=== PATIENT | female | born 1935 | race Caucasian/White ===

== ENCOUNTER 2017-01-31 08:55 | Emergency (ER) | payer BC ==
[~2017-01-31] VITALS: Ht 157.5 cm; Wt 97.3 kg
[~2017-01-31 08:55] MED LIST: ADVIL200 MG PO; ASPIRIN E.C. 8181 MG PO; CELEXA 20MG20 MG/TAB PO; CIPRO 250MG TA250 MG PO; CLEOCIN HC150 MG/CAP PO; CUBICIN 500MG500 MG IV; DIFLUCAN150 MG PO; K-DUR 2020 MEQ PO; NITROQUICK0.4 MG SL; NORCO 325 MG-51 TAB PO; NOVOLIN 70/30 710 ML SC; NOVOLOG 100U100 U/M1 SC; PLAVIX 75MG TAB75 MG PO; PRIL40 PO; PRINZIDE 12.5 M1 TA1 PO; SYNTHROID0.125 MG/T PO; VANCOCIN HCL1 GM IV; ZOCOR 20MG20 MG PO
[2017-01-31 08:58] VITALS: TEMP 98.5
[2017-01-31 09:48] LABS: ADJUSTED CALCIUM 9.5 mg/dL (8.4-10.2); ALANINE AMINOTRANSFERASE 22 U/L (9-52); ALBUMIN 3.4 gm/dL (3.5-5.0); ALKALINE PHOSPHATASE 71 U/L (50-136); ANION GAP 13 mmol/L (7-16); BASO # 0.1 (0.0-0.2); BASO % 0.7 % (0.0-2.0); BILIRUBIN,TOTAL 0.6 mg/dL (0.0-1.0); BLOOD UREA NITROGEN 68 mg/dL (7-17); CARBON DIOXIDE 24 mmol/L (22-30); CHLORIDE 97 mmol/L (98-107); CREATININE, serum 3.04 mg/dL (0.52-1.25); EOS # 0.2 (0.0-0.7); EOS % 1.9 % (0-4.0); GLUCOSE 106 mg/dL (74-106); GRAN # 8.3 (1.4-6.5); GRAN % 68.3 % (42.2-75.2); HEMATOCRIT 36.9 % (37.0-47.0); HEMOGLOBIN 11.8 g/dl (12.5-16.0); LYMPH # 2.5 (1.2-3.4); LYMPH % 20.3 % (20.0-51.0); MEAN CELL VOLUME 88 fl (80.0-100.0); MEAN CORPUSCULAR HEMOGLOBIN 28 pg (27.0-31.0); MEAN CORPUSCULAR HGB CONC 32 g/dl (33.0-37.0); MEAN PLATELET VOLUME 12.5 fl (7.4-10.4); MONO % 8.3 % (1.7-9.3); PLATELET COUNT 222 K/mm3 (130-400); POTASSIUM 5.4 mmol/L (3.4-5.0); RED BLOOD COUNT 4.21 M/mm3 (4.10-5.30); REDCELL DISTRIBUTION WIDTH-CV 14.7 % (11.5-14.5); SODIUM 134 mmol/L (137-145); TOTAL PROTEIN 6.8 gm/dL (6.4-8.2); WHITE BLOOD COUNT 12.2 K/mm3 (4.8-10.8)
[2017-01-31 09:52] LABS: PARTIAL THROMBOPLASTIN TIME 57.7 SECONDS (26.0-37.0)
[2017-01-31 09:55] LABS: INR 4.9 (0.8-3.0)
[2017-01-31 09:56] LABS: PROTHROMBIN TIME 57.5 SECONDS (9.7-12.8)
[2017-01-31 09:59] LABS: TROPONIN-I < 0.012 ng/mL (0.000-0.034)
[2017-01-31 10:36] VITALS: BP 99/43; PULSE 61
== END 2017-01-31 10:57 | disposition short-term general hospital (02) ==
LOC: COL.ER 08:55
PROVIDERS: Emergency Medicine
DX: I21.3 ST elevation (STEMI) myocardial infarction of unspecified site (principal); E11.22 Type 2 diabetes mellitus with diabetic chronic kidney disease; I12.9 Hypertensive chronic kidney disease with stage 1 through stage 4 chronic kidney disease, or unspecified chronic kidney disease; N18.9 Chronic kidney disease, unspecified; R79.1 Abnormal coagulation profile; T45.515A Adverse effect of anticoagulants, initial encounter; I48.91 Unspecified atrial fibrillation; Z87.891 Personal history of nicotine dependence; Z79.01 Long term (current) use of anticoagulants; E78.5 Hyperlipidemia, unspecified; Z89.612 Acquired absence of left leg above knee
CPT/HCPCS: J1265; J1644; J2765; J7030